=== PATIENT | male | born 1950 | race Caucasian/White ===

== ENCOUNTER 2016-07-13 06:06 | Outpatient (CLI) ==
[2016-07-13 06:14] LABS: BASOPHILS # (AUTO) 0.1 K/uL (0-0.2); BASOPHILS % (AUTO) 0.5 % (0.0-3.0); EOSINOPHILS # (AUTO) 0.1 K/ul (0.0-0.7); HEMATOCRIT 38.4 % (42.0-52.0); HEMOGLOBIN 12.9 g/dl (14.0-18.0); IMMATURE GRANULOCYTE % (AUTO) 0.6 % (0.0-5.0); LYMPHOCYTES # (AUTO) 1.5 K/uL (0.60-3.4); LYMPHOCYTES % (AUTO) 16.4 (10.0-50.0); MEAN CORPUSCULAR HEMOGLOBIN 29.3 pg (27.0-31.0); MEAN CORPUSCULAR HGB CONC 33.6 (31.8-35.4); MEAN CORPUSCULAR VOLUME 87.3 fl (80.0-94.0); MONOCYTES # (AUTO) 0.6 K/uL (0.4-2.0); MONOCYTES % (AUTO) 6.7 (0-10); NEUTROPHILS # (AUTO) 6.9 K/ul (2.0-6.9); NEUTROPHILS % (AUTO) 74.8; PLATELET COUNT 221 10^3/uL (140-440); WHITE BLOOD COUNT 9.27 K/ul (4.2-10.2)
[2016-07-13 06:34] LABS: ALBUMIN 4.3 g/dL (3.4-5.0); ALBUMIN/GLOBULIN RATIO 1.79; ANION GAP 14.7; BILIRUBIN,TOTAL 0.56 mg/dL (0.00-1.20); BUN/CREATININE RATIO 9.16; CALCIUM 9.5 mg/dL (8.2-10.2); CHOL/HDL RATIO 2.2 (4.5-6.4); CREATININE 1.2 mg/dL (0.60-1.10); POTASSIUM 3.7 mmol/L (3.5-5.1); TOTAL PROTEIN 6.7 g/dL (5.8-8.1)
== END 2016-07-13 06:07 | disposition home or self-care (01) ==
LOC: LAB 06:06
PROVIDERS: ATTEND Nurse Practitioner Family
DX: J45.909 Unspecified asthma, uncomplicated (principal); E78.5 Hyperlipidemia, unspecified
CPT/HCPCS: 36415; 80053; 80061; 85025

== ENCOUNTER 2017-01-05 06:05 | Outpatient (CLI) ==
[2017-01-05 06:21] LABS: BASOPHILS # (AUTO) 0.1 K/uL (0-0.2); BASOPHILS % (AUTO) 0.9 % (0.0-3.0); EOSINOPHILS # (AUTO) 0.1 K/ul (0.0-0.7); EOSINOPHILS % (AUTO) 1.8 % (0.0-7.0); HEMATOCRIT 36.6 % (42.0-52.0); HEMOGLOBIN 12.7 g/dl (14.0-18.0); IMMATURE GRANULOCYTE % (AUTO) 1.1 % (0.0-5.0); LYMPHOCYTES # (AUTO) 1.6 K/uL (0.60-3.4); LYMPHOCYTES % (AUTO) 28.1 (10.0-50.0); MEAN CORPUSCULAR HEMOGLOBIN 29.5 pg (27.0-31.0); MEAN CORPUSCULAR HGB CONC 34.7 (31.8-35.4); MEAN CORPUSCULAR VOLUME 85.1 fl (80.0-94.0); MONOCYTES # (AUTO) 0.6 K/uL (0.4-2.0); MONOCYTES % (AUTO) 10.1 (0-10); NEUTROPHILS # (AUTO) 3.2 K/ul (2.0-6.9); PLATELET COUNT 213 10^3/uL (140-440); WHITE BLOOD COUNT 5.56 K/ul (4.2-10.2)
[2017-01-05 07:03] LABS: ALBUMIN 4.2 g/dL (3.4-5.0); ANION GAP 14.4; BILIRUBIN,TOTAL 0.52 mg/dL (0.00-1.20); BUN/CREATININE RATIO 7.96; CALCIUM 9.6 mg/dL (8.2-10.2); CREATININE 1.13 mg/dL (0.60-1.10); POTASSIUM 3.4 mmol/L (3.5-5.1); TOTAL PROTEIN 6.3 g/dL (5.8-8.1)
== END 2017-01-05 06:06 | disposition home or self-care (01) ==
LOC: LAB 06:05
PROVIDERS: ATTEND Nurse Practitioner Family
DX: Z12.5 Encounter for screening for malignant neoplasm of prostate (principal); D64.9 Anemia, unspecified; E78.5 Hyperlipidemia, unspecified; I10 Essential (primary) hypertension
CPT/HCPCS: 36415; 80053; 80061; 84443; 85025

== ENCOUNTER 2017-01-13 07:36 | Outpatient (CLI) ==
--- NOTE | 2017-01-13 10:30 | CT ---
EXAM: CT Chest with and without contrast. HISTORY: Abnormal weight loss. COMPARISON: None available. TECHNIQUE: Multiple axial images of the chest were obtained prior to and following intravenous admi nistration of 100 mL of Omnipaque 350, low osmolar. Images were reformatted in the sagittal and cor onal planes. FINDINGS: No mediastinal, hilar, or axillary lymphadenopathy identified. Heart size is normal. No pericardial effusion identified. Atherosclerotic calcifications are present. Calcified granulomatous changes are present. No suspicious nodule, consolidation, pleural effusion or pneumothorax identified. There are old left rib fractures as well as mild compression deformities of T4, T5, T6 and T7. Limited images of the upper abdomen demonstrate no acute abnormality. Refer to abdominal CT report from the same day for details. IMPRESSION: No explanation for the patient's weight loss. No acute intrathoracic abnormality.
--- NOTE | 2017-01-13 10:30 | CT ---
Exam: CT of the abdomen and pelvis without intravenous contrast followed by CT of the abdomen pelvi s with intravenous contrast and delayed imaging. Comparison: 09/25/2014. Reason for exam: Disorder of kidney and ureter. FINDINGS: Mild basilar atelectasis without pleural effusion, or focal consolidation in the partiall y imaged lung bases. Old granulomas disease is seen within the splenic parenchyma. The liver, gallbladder, spleen, adrenal glands, and pancreas appear grossly unremarkable. Atherosclerotic disease is seen within the aorta and distal arterial vasculature. 4.3 cm cyst is seen in the left kidney and a sub centimeter cysts in the right kidney No hydronephro sis or hydroureter is seen in either kidney. No focal small bowel dilatation or transition point. The appendix is unremarkable. No intra-abdominal free air or pelvic free fluid. Diverticular disease is seen within the rectosigmoid. The bladder appears grossly unremarkable. Calcifications are seen within the prostate gland. Degenerative disease is noted within the lumbosacral spine with intervertebral body disc space heigh t loss and modic change. No suspicious appearing osteoblastic or osteolytic lesion. Impression: 1. No acute imaging findings are seen within the abdomen or pelvis. 2. Bilateral renal cysts 3. Diverticulosis
== END 2017-01-13 07:37 | disposition home or self-care (01) ==
LOC: RAD 07:36
PROVIDERS: ATTEND Nurse Practitioner Family
DX: R63.4 Abnormal weight loss (principal); N28.9 Disorder of kidney and ureter, unspecified; Z77.22 Contact with and (suspected) exposure to environmental tobacco smoke (acute) (chronic)

== ENCOUNTER 2017-01-25 08:14 | Emergency (ER) ==
[2017-01-25 08:31] VITALS: BP 161/78; TEMP 97.3; BMI 22.4
--- NOTE | 2017-01-25 08:41 | ED.PDOC ---
General ED Provider: Dr. BETH CH JR Chief Complaint: Extremity Pain/Injury Stated Complaint: FELL AT HOME 2 WEEKS AGO STEPPING IN TO BATHTUB. LANDED ON LEFT PELVIS. PAIN INCREASINGLY WORSE. PAINFUL TO WALK[ End ]97.3 51 16 96% 161/ 78 10 TYLENOL , ALEVE X 6 PER DAY FALL WITH LEFT HIP PAIN MIDDLE 3 TOES LEFT FOOT NUMB- toes initially painful burning now numb. never any bruising pain with walking- at left post pelvis Time Seen by Physician: 08:57 Mode of Arrival: Walk-In Information Source: Patient Exam Limitations: No limitations [facility] Nursing and Triage Documentation Reviewed and Agree: No Review of Systems - Review Of Systems Constitutional: Reports: No symptoms Eyes: Reports: No symptoms Ears, Nose, Mouth, Throat: Reports: No symptoms Respiratory: Reports: No symptoms Cardiac: Reports: No symptoms GI: Reports: No symptoms : Reports: Other Musculoskeletal: Reports: Joint pain Skin: Reports: No symptoms Neurological: Reports: No symptoms Endocrine: Reports: No symptoms Hematologic/Lymphatic: Reports: No symptoms All Other Systems: Other Past Medical History - Past Medical History Endocrine: Reports: Dyslipidemia Cardiovascular: Reports: Hypertension Respiratory: Reports: COPD, Asthma Hematological: Reports: Anemia Gastrointestinal: Reports: GERD Genitourinary: Reports: None Neuro/Psych: Reports: Anxiety Musculoskeletal: Reports: Arthritis Cancer: Reports: None Other Pertinent Past Medical History: CYSTS BOTH KIDNEYS, reviewed films expect cate to discuss with a physician- - Surgical History General Surgical History: Reports: Orthopedic (LEFT KNEE FX) - Family History Family History: Reports: Unknown - Social History Smoking Status: Never smoker Hx Substance Use: No Alcohol Screening: None - Immunizations Tetanus Shot up to Date: No Physical Exam - Physical Exam Appearance: Well-appearing, Thin Pain Distress: Moderate Neck: Supple Respiratory: Airway patent Musculoskeletal: Normal strength, ROM intact, No edema, No calf tenderness ( tender posterior left pelvis) Skin: Warm, Dry, Normal color (no bruising present patient denies history of bruising) Neurological: Sensation intact, Motor intact, Reflexes intact, Cranial nerves intact, Alert, Oriented Psychiatric: Affect appropriate, Mood appropriate Re-Evaluation - Re-Evaluation Time of Re-Evaluation: 10:00 Status: Unchanged (renal cysts seen on xray recommend discuss with physician agree with referral by pts nurse) Critical Care Note - Critical Care Note Total Time (mins): 0 Course - Course Orders, Labs, Meds: Orders Category Date Time Status PELVIS 1 OR 2 VIEWS Stat RADS 01/25/17 08:57 Completed Vital Signs: Temp Pulse Resp BP Pulse Ox 01/25/17 08:19 97.3 F L 51 L 16 161/78 H 96 Departure - Departure Time of Disposition: 09:44 Disposition: HOME SELF-CARE Discharge Problem: Contusion of pelvis Instructions: Contusion in Adults (ED) Condition: Good Pt referred to PMD for follow-up: Yes Additional Instructions: may use pain medication sparingly- no refills Prescriptions: Hydrocodone Bit/Acetaminophen [[place]rett 5-325] 1 - 2 tab PO Q6HR PRN #12 tablet PRN Reason: pain Naproxen [Naprosyn] 500 mg PO Q12HR PRN #30 tablet PRN Reason: PAIN Allergies/Adverse Reactions: Allergies NSAIDS (Non-Steroidal Anti-Inflamma Adverse Reaction (Severe, Unverified 08:26) nephr told pt not to take due to kidney function Home Medications: Ambulatory Orders Fenofibrate,Micronized [Fenofibrate] 67 mg PO EVERY OTHER DAY 10/09/15 Hydrocodone Bit/Acetaminophen [Sterrett 5-325] 1 - 2 tab PO Q6HR PRN #12 tablet Naproxen [Naprosyn] 500 mg PO Q12HR PRN #30 tablet 01/25/17
--- NOTE | 2017-01-25 09:26 | DI ---
Exam: Single x-ray of the pelvis. Comparison: CT abdomen pelvis performed 01/13/2017. Reason for exam: Fall with left inferior pelvic tenderness times 2 weeks. FINDINGS: No acute fracture or malalignment. The sacroiliac joint spaces appear symmetric. The fe moral heads articulate with the acetabulum. The symphysis pubis is unremarkable. There are multipl e calcific densities in the pelvis likely phleboliths. The pelvic ring appears intact. Impression: No acute fracture or dislocation is seen within the pelvis.
== END 2017-01-25 10:00 | disposition home or self-care (01) ==
LOC: ED 08:14
DX: S30.0XXA Contusion of lower back and pelvis, initial encounter (principal); W19.XXXA Unspecified fall, initial encounter
CPT/HCPCS: 99283

== ENCOUNTER 2017-06-28 09:37 | Outpatient (CLI) ==
--- NOTE | 2017-06-28 11:52 | DI ---
EXAM: LEFT HIP, 2 VIEWS HISTORY: Fall FINDINGS: There is a minimally distracted nondisplaced intertrochanteric femoral fracture. No joint dislocation. Bones appear mildly demineralized. Hip joint has only mild osteoarthritis. Sacroilia c joints are intact. Moderate degenerative changes of the lower spine. IMPRESSION: Intertrochanteric femoral fracture.
--- NOTE | 2017-06-28 14:21 | MRI ---
EXAM: MRI left hip without contrast. HISTORY: Chronic left hip pain status post fall. No left hip surgery reported.. TECHNIQUE: Using a body phased array coil on a high field strength magnet transaxial and coronal eb rt TR/TE non-fat chest, transaxial long TR/TE fat-suppressed and coronal STIR large field of view clarence ging obtained through the level both hip joints. Additional sagittal long TR/TE non-fat suppressed s maller field of view imaging obtained through the level of the left hip joint only. No intravenous o r intra-articular gadolinium contrast administered. COMPARISON: CT abdomen pelvis 01/13/2017. Two-view plain film examination left hip 06/28/2017. FINDINGS: Disc desiccation with changes of discogenic disease L4-L5 and L5-S1. Associated facet art hropathy. Both sacroiliac joints intact without bone ankylosis or joint effusion. Mild osteoarthros is involving both sacroiliac joints and pubic symphysis. Overall bone marrow signal intensity of the sacrum and pelvis shows no acute fracture or discrete lytic or blastic lesion. Both femoral heads seated. Trace bilateral hip effusions. Early bilateral hip osteoarthrosis. Well-d efined low T1 signal intensity proximal left femur intertrochanteric fracture. Diffuse bone marrow e jodee/contusion. Involvement of both the lesser and greater trochanter. There is a well-defined haja nal oriented fracture cleft with separate fracture fragment of the posterior aspect of the greater tr ochanter. This avulsed fracture fragment forms attachment of the left gluteus medius. Otherwise poly r anatomic alignment.. Large 92 mm craniocaudad by 41 mm AP by 41 mm transverse complex fluid signal intensity collection draped over the posterior greater trochanter may reflect evolving soft tissue c ontusion/hematoma. There is extensive surrounding adjacent muscle strain and deep soft tissue inter muscular edema. Overall the muscle bulk of the pelvis and surrounding both hips shows fatty infiltrat ion with atrophy. Bilateral proximal hamstring origin tendinosis. Course of the right and left sciatic nerves normal i n appearance. No enlarged inguinal lymphadenopathy or bowel herniation. No enlarged pelvic sidewall lymphadenopathy. No pelvic ascites. Bladder of normal morphology. Prostate upper limit of normal in size. Sigmoid diverticulosis.. IMPRESSION: Well-defined proximal left femur intertrochanteric fracture as described with diffuse david ne marrow edema/contusion. Extensive surrounding adjacent muscle strain and deep soft tissue intermus cular edema. Large 92 mm complex fluid signal intensity collection draped over the posterior greater trochanter ma y reflect evolving soft tissue contusion/hematoma. Disc desiccation with changes of discogenic disease L4-S1. Associated facet arthropathy. Mild osteo arthrosis both sacroiliac joints and pubic symphysis. Bilateral proximal hamstring origin tendinosis. Prostate upper limit of normal size. Sigmoid diverticulosis.
== END 2017-06-28 09:38 | disposition home or self-care (01) ==
LOC: RAD 09:37
PROVIDERS: ATTEND Nurse Practitioner Family
DX: M25.552 Pain in left hip (principal); W19.XXXA Unspecified fall, initial encounter; Y92.009 Unspecified place in unspecified non-institutional (private) residence as the place of occurrence of the external cause

== ENCOUNTER 2017-06-28 12:29 | Emergency (ER) ==
[2017-06-28 12:39] VITALS: BP 159/70; TEMP 97.8; BMI 21.7
[2017-06-28] MEDS ORDERED: NORCO 7.5-325 MG/15 ML PO STA (13:37)
--- NOTE | 2017-06-28 13:40 | ED.PDOC ---
General ED Provider: Dr. JEREMY GIRON Chief Complaint: Hip Pain/Injury Stated Complaint: CCLt Hip pain : HPI: States fell at home on Tuesday while walking his dog getting tangled up in leash.Fell injuring Lt Hip. Has been evaluated by as outpatient by Lencho PIRES and referred to Hospital for outpatient xray. Xray revealed Lt hip intertrochanteric fracture. Brought to ER for evaluation and transfer for orthopedic evaluation and treatment. Time Seen by Physician: 12:50 Mode of Arrival: Stretcher Information Source: Patient Primary Care Provider: LENCHO BURGOS Referred to ED by: PCP Nursing and Triage Documentation Reviewed and Agree: Yes Reviewed sepsis parameters & appropriate labs ordered?: Yes System Inflammatory Response Syndrome: Not Applicable Sepsis Protocol: For patient's 13 years and over: Temp is 96.8 and below OR 101 and greater Pulse >90 BPM Resp >20/minute Acutely Altered Mental Status Are patient's symptoms suggestive of a new infection, such as: -Pneumonia -Skin, Soft Tissue -Endocarditis -UTI -Bone, Joint Infection -Implantable Device -Acute Abdominal Infection -Wound Infection -Meningitis -Blood Stream Catheter Infection -Unknown System Inflammatory Response Syndrome: Not Applicable Review of Systems - Review Of Systems Constitutional: Reports: No symptoms Eyes: Reports: No symptoms Ears, Nose, Mouth, Throat: Reports: No symptoms Respiratory: Reports: No symptoms Cardiac: Reports: No symptoms GI: Reports: No symptoms : Reports: No symptoms Musculoskeletal: Reports: Joint pain (Lt Hip) Skin: Reports: No symptoms Neurological: Reports: No symptoms Endocrine: Reports: No symptoms Hematologic/Lymphatic: Reports: No symptoms All Other Systems: Reviewed and Negative Past Medical History - Past Medical History Endocrine: Reports: Dyslipidemia Cardiovascular: Reports: Hypertension Respiratory: Reports: COPD, Asthma Hematological: Reports: Anemia Gastrointestinal: Reports: GERD Genitourinary: Reports: None Neuro/Psych: Reports: Anxiety Musculoskeletal: Reports: Arthritis Cancer: Reports: None Other Pertinent Past Medical History: CYSTS BOTH KIDNEYS, reviewed films expect cate to discuss with a physician- - Surgical History General Surgical History: Reports: Orthopedic (LEFT KNEE FX) - Family History Family History: Reports: Unknown - Social History Smoking Status: Never smoker Hx Substance Use: No Alcohol Screening: None - Immunizations Tetanus Shot up to Date: No Physical Exam - Physical Exam Appearance: Well-appearing Ill-appearing: None Pain Distress: Mild Eyes: HAY, EOMI, Conjunctiva clear ENT: Ears normal, Nose normal, Oropharynx normal Respiratory: Airway patent, Breath sounds clear Cardiovascular: RRR GI/: Soft, Nontender Musculoskeletal: Normal strength (Tenderness over Lt Hip-with LLE sl weakness) Skin: Warm, Dry, Normal color Neurological: Sensation intact Psychiatric: Affect appropriate, Mood appropriate Re-Evaluation - Re-Evaluation Time of Re-Evaluation: 15:45 Status: Unchanged Vital Signs Stable: Yes Pain Level: 5/10 Appearance: NAD Lungs: Clear Skin: Warm and Dry Neuro: Alert and Oriented X3 CV: RRR Additional Comments: Have arranged for transfer to [facility] for orthopedic surg treatmen Critical Care Note - Critical Care Note Total Time (mins): 0 Course - Course Hematology/Chemistry: 06/28/17 13:54 06/28/17 13:54 Orders, Labs, Meds: Lab Review 06/28/17 06/28/17 06/28/17 13:54 13:54 14:56 WBC 16.79 H RBC 4.33 L Hgb 13.0 L Hct 36.7 L MCV 84.8 MCH 30.0 MCHC 35.4 RDW Coeff of Estelle 12.8 Plt Count 274 Immature Gran % (Auto) 0.8 Neut % (Auto) 78.8 Lymph % (Auto) 11.5 Chaves % (Auto) 8.5 Eos % (Auto) 0.2 Baso % (Auto) 0.2 Immature Gran # (Auto) 0.1 Neut # 13.3 H Lymph # 1.9 Chaves # 1.4 Eos # 0.0 Baso # 0.0 Sodium 132 L Potassium 3.1 L Chloride 92 L Carbon Dioxide 30 Anion Gap 13.1 BUN 12 Creatinine 0.99 Estimated GFR (MDRD) 76.00 BUN/Creatinine Ratio 12.12 Glucose 101 Calcium 9.7 Total Bilirubin 0.6 AST 25 ALT 27 Alkaline Phosphatase 155 H Total Protein 7.1 Albumin 4.1 Globulin 3.0 Albumin/Globulin Ratio 1.37 Urine Color Yellow Urine Clarity Clear Urine pH 7.0 Ur Specific [place] 1.010 Urine Protein Negative Urine Glucose (UA) Negative Urine Ketones Negative Urine Blood Trace-intact Urine Nitrite Negative Urine Bilirubin Negative Urine Urobilinogen 0.2 Ur Leukocyte Esterase Negative Urine Microscopic RBC 0-2 Ur Squamous Epith Cells Not present Orders Category Date Time Status EKG-(ED ONLY) Stat CARDIO 06/28/17 13:36 Completed CBC W/ AUTO DIFF Stat LAB 06/28/17 13:54 Completed CMP [COMPREHENSIVE METABOLIC PANEL] Stat LAB 06/28/17 13:54 Completed UA [URINALYSIS C & S IF INDICATED] Stat LAB 06/28/17 14:56 Completed Chlordiazepoxide HCl [Librium] MEDS 06/28/17 14:47 Discontinued 25 mg PO ONCE STA Hydrocodone Bit/Acetaminophen [[place] 7.5-325 mg/15 ml] MEDS 06/28/17 13:37 Discontinued 5 mg PO ONCE STA CHEST, 1V AP ONLY Stat RADS 06/28/17 13:36 Completed Medications Discontinued Medications Generic Name Dose Route Start Last Admin Trade Name Freq PRN Reason Stop Dose Admin Acetaminophen/Hydrocodone Bitart 5 mg 06/28/17 13:37 06/28/17 13:42 [place] 7.5-325 Mg/15 Ml PO 06/28/17 13:38 5 mg ONCE STA Administration Chlordiazepoxide HCl 25 mg 06/28/17 14:47 06/28/17 14:55 Librium PO 06/28/17 14:48 25 mg ONCE STA Administration Vital Signs: Temp Pulse Resp BP Pulse Ox 06/28/17 12:31 97.8 F 60 16 159/70 H 100 Departure - Departure Time of Disposition: 16:00 Disposition: TSF SHORT-TRM HOSP Discharge Problem: Intertrochanteric fracture of left femur Qualifiers: Encounter type: initial encounter Fracture type: closed Fracture alignment: nondisplaced Qualified Code(s): S72.145A - Nondisplaced intertrochanteric fracture of left femur, initial encounter for closed fracture Instructions: Hip Fracture (ED) Condition: Stable Pt referred to PMD for follow-up: No IPMP verified?: No Allergies/Adverse Reactions: Allergies NSAIDS (Non-Steroidal Anti-Inflamma Adverse Reaction (Severe, Unverified 08:26) nephr told pt not to take due to kidney function Home Medications: Ambulatory Orders Fenofibrate,Micronized [Fenofibrate] 67 mg PO EVERY OTHER DAY 10/09/15 Naproxen [Naprosyn] 500 mg PO Q12HR PRN #30 tablet 01/25/17 Additional Information: [employer] contacted ortho DR ONOFRE who agreed to accept patient stating he did not need to speak to ER physician
--- NOTE | 2017-06-28 14:10 | DI ---
EXAM: CHEST FRONTAL VIEW HISTORY: Hip fracture. FINDINGS: Normal heart size. Mild aortic atherosclerosis. No acute infiltrates are seen. No vascul ar congestion. There is no consolidation, visible pleural fluid or pneumothorax. Bones reveal no acu te fracture. IMPRESSION: No acute cardiopulmonary process.
[2017-06-28] MEDS ORDERED: LIBRIUM PO STA (14:47)
== END 2017-06-28 15:40 | disposition short-term general hospital (02) ==
LOC: ED 12:29
DX: S72.145A Nondisplaced intertrochanteric fracture of left femur, initial encounter for closed fracture (principal); W01.0XXA Fall on same level from slipping, tripping and stumbling without subsequent striking against object, initial encounter; E78.5 Hyperlipidemia, unspecified; I10 Essential (primary) hypertension; D64.9 Anemia, unspecified
CPT/HCPCS: 36415; 80053; 81001; 85025; 93005; 93010; 99285

== ENCOUNTER 2017-07-28 10:23 | Outpatient (CLI) | payer OTHER ==
--- NOTE | 2017-07-28 11:59 | DI ---
EXAM: RIGHT HIP, 2 VIEWS HISTORY: Hip pain FINDINGS: Trabecular markings are accentuated consistent with at least mild demineralization. Hip j oint is within normal limits. Visualized right sacroiliac joint is normal. No fracture or dislocati on is identified. Vascular calcifications are noted. IMPRESSION: Mild demineralization. Bone and joint structures were otherwise within normal limits.
--- NOTE | 2017-07-28 11:59 | DI ---
Exam: Three x-rays of the sacrum and coccyx. Comparison: MRI of the lumbar spine performed 11/07/2013. Reason for exam: Unspecified fall. FINDINGS: The pelvic ring appears intact. The sacroiliac joint spaces are symmetric. Image interpr etation is limited by osseous demineralization. Impression: No obvious fracture is seen within the sacrum or coccyx.
--- NOTE | 2017-07-28 15:33 | MRI ---
EXAM: MRI right hip without contrast.. HISTORY: Right hip pain. Left hip surgery for intertrochanteric fracture May 2017.. No right h ip surgery.. COMPARISON: AP pelvis 01/25/2017. MRI left hip 06/28/2017. Two-view plain film examination right h ip 07/28/2017. . TECHNIQUE: Using a coil on a high field strength magnet multiplanar multisequence large and small fi eld of view imaging obtained through the level of the right hip without intravenous or intra-articula r gadolinium contrast. FINDINGS: Visualized lower lumbar spine shows disc desiccation with changes of discogenic disease L3 -S1. Associated facet arthropathy. Both sacroiliac joints intact without bony ankylosis or joint ef fusion. Mild osteoarthrosis both sacroiliac joints as well as pubic symphysis. Bone marrow heteroge neity compatible with intermixed red and yellow marrow. Otherwise bone marrow signal intensity of th e sacrum, pelvis, and proximal femora shows no acute fracture or discrete lytic or blastic lesion. D uring the interval there has been open reduction internal fixation of the proximal left femur with ar tifact from indwelling instrumentation. Both femoral heads seated. Small left hip effusion. No right hip effusion.. Mild bilateral hip ost eoarthrosis. No large surrounding paralabral cysts. Overall the muscle bulk of the pelvis and surro unding both hips shows fatty infiltration/atrophy. Some mild bilateral adductor muscle strain, left greater than right. The prior seen large complex fluid signal intensity collection draped over the p osterior left greater trochanter thought to represent evolving soft tissue contusion/hematoma remains with slight decrease in size.. This measures upwards of 8.9 cm craniocaudad and 2.7 cm transverse. There is some anterior and posterior deep intermuscular/deep fascial edema and adjacent muscle strai n associated with the left hip. There is additionally a new 42 mm craniocaudad by 11 mm wide elliptic al fluid signal intensity collection superficial to the iliotibial tract along the lateral soft tissu es to the left hip. Both proximal hamstring origins intact. Course of the right and left sciatic nerves within normal li robert. No enlarged inguinal lymphadenopathy or bowel herniation. No enlarged pelvic sidewall lymphade nopathy. No pelvic ascites. Bladder distended of normal morphology. Prostate remains upper limit o f normal in size. There remains a sigmoid diverticulosis.. IMPRESSION: No acute fracture, stress fracture or avascular necrosis right hip. No right hip effusi on. Mild bilateral hip osteoarthrosis. Interval open reduction internal fixation of the proximal left femur with artifact from indwelling in strumentation. Small left hip effusion. The prior seen large complex fluid signal intensity collect ion draped over the posterior left greater trochanter thought to represent evolving soft tissue contu juan/hematoma remains with slight decrease in size. Infection not excluded. New 42 mm x 11 mm in mela ptical fluid signal intensity collection superficial to the iliotibial track along the lateral soft t issues to the left hip. This may reflect seroma, evolving hematoma. Abscess not excluded. Mild bilateral adductor muscle strain, left greater than right. Prostate upper limit of normal size. Sigmoid diverticulosis. Disc desiccation with changes of discogenic disease L3-S1. Associated facet arthropathy.
== END 2017-07-28 10:24 | disposition home or self-care (01) ==
LOC: RAD 10:23
PROVIDERS: ATTEND Nurse Practitioner Family
DX: M25.551 Pain in right hip (principal); W19.XXXA Unspecified fall, initial encounter; Y92.009 Unspecified place in unspecified non-institutional (private) residence as the place of occurrence of the external cause

== ENCOUNTER 2017-09-13 06:02 | Outpatient (CLI) | payer OTHER | END 2017-09-13 06:03 | disposition home or self-care (01) | LOC: LAB 06:02 | PROVIDERS: ATTEND Nurse Practitioner Family | DX: E78.5 Hyperlipidemia, unspecified (principal); I10 Essential (primary) hypertension | CPT/HCPCS: 36415; 80053; 80061; 85025 ==

== ENCOUNTER 2017-09-15 08:42 | Outpatient (CLI) | payer OTHER ==
--- NOTE | 2017-09-15 09:58 | DI ---
EXAM: Three views of the lumbar spine HISTORY: Lower back pain. COMPARISON: Lumbar spine x-ray 02/26/2008 FINDINGS: There is mild rightward curvature of the lumbar spine with the apex at L2. There is narrow ing at L1-L2 and L2-L3 with osteophyte formation. There is no acute compression fracture identified. There is multilevel disc space narrowing with mild osteophyte formation. There is moderate facet a rthropathy. Lumbosacral junction is narrowed with facet arthropathy. IMPRESSION: 1. No acute compression fracture or subluxation. 2. Moderate multilevel degenerative disease with mild rightward scoliosis with the apex at L2.
== END 2017-09-15 08:43 | disposition home or self-care (01) ==
LOC: RAD 08:42
PROVIDERS: ATTEND Nurse Practitioner Family
DX: M54.5 Low back pain (principal)

== ENCOUNTER 2018-02-15 06:11 | Outpatient (CLI) | END 2018-02-15 06:12 | disposition home or self-care (01) | LOC: LAB 06:11 | PROVIDERS: ATTEND Nurse Practitioner Family | DX: E87.1 Hypo-osmolality and hyponatremia (principal); D64.9 Anemia, unspecified; Z12.5 Encounter for screening for malignant neoplasm of prostate | CPT/HCPCS: 36415; 80048 ==

== ENCOUNTER 2018-09-06 06:02 | Outpatient (CLI) ==
[2018-04-26 07:17] VITALS: BMI 20.9
== END 2018-09-06 06:03 | disposition home or self-care (01) ==
LOC: LAB 06:02
PROVIDERS: ATTEND Nurse Practitioner Family
DX: D64.9 Anemia, unspecified (principal); I10 Essential (primary) hypertension
CPT/HCPCS: 36415; 80053; 85025

== ENCOUNTER 2018-09-07 13:43 | Outpatient (CLI) ==
[2018-04-26 07:17] VITALS: BMI 20.9
== END 2018-09-07 13:44 | disposition home or self-care (01) ==
LOC: RHC-LAB 13:43
PROVIDERS: ATTEND Nurse Practitioner Family
DX: D64.9 Anemia, unspecified (principal); K90.9 Intestinal malabsorption, unspecified; R63.4 Abnormal weight loss; M79.10 Myalgia, unspecified site
CPT/HCPCS: 36415; 82306; 82607; 82728; 82746; 83540; 83550; 85025

== ENCOUNTER 2019-01-18 11:01 | Outpatient (CLI) ==
[2018-04-26 07:17] VITALS: BMI 20.9
== END 2019-01-18 11:02 | disposition home or self-care (01) ==
LOC: RHC-LAB 11:01
PROVIDERS: ATTEND Nurse Practitioner Family
DX: E55.9 Vitamin D deficiency, unspecified (principal); R53.83 Other fatigue; F41.8 Other specified anxiety disorders; E78.5 Hyperlipidemia, unspecified; Z12.5 Encounter for screening for malignant neoplasm of prostate
CPT/HCPCS: 36415; 80053; 80061; 82306; 82607; 84443; 85025